=== PATIENT | male | born 2000 | race Caucasian/White ===

== ENCOUNTER 2023-05-16 07:18 | Emergency (ER) | payer OTHER | END 2023-05-16 15:07 | disposition home or self-care (01) | LOC: EDBD → CSHERS 07:18 | DX: F33.9 Major depressive disorder, recurrent, unspecified (principal) | CPT/HCPCS: 99284 ==

== ENCOUNTER 2024-01-04 15:13 | Emergency (ER) | payer OTHER ==
[2024-01-04 15:41] LABS: #Basophils 0.1 10x3/uL (0.0-0.2); #Eosinphils 0.2 10x3/uL (0.0-0.5); #Monocytes 0.4 10x3/uL (0.0-1.1); #Neutrophils 5.2 10x3/uL (1.5-8.4); %Basophils 0.7 % (0.0-2.0); %Eosinophils 2.1 % (0.0-6.0); %Lymphocytes 23.4 % (18.0-47.0); %Monocytes 5.5 % (0.0-10.0); Hemoglobin 15.4 g/dL (13.5-17.5); Mean Corpuscular Hemoglobin 28.5 pg (27.0-33.0); Mean Corpuscular Volume 81.5 fl (81.2-95.1); Mean Platelet Volume 10.2 fl (7.4-10.4); Platelet Count 256 10x3/uL (150-450); RBC Distribution Width 12.6 % (11.5-14.5); White Blood Cell (WBC) Count 7.6 10x3/uL (3.5-10.5)
[2024-01-04 15:56] LABS: Acetaminophen Less than 10 mcg/mL (10.0-30.0); Alcohol Less than 10.0 mg/dL (Less than 10); Salicylate Less than 8.0 mg/dL (15.0-30.0)
[2024-01-04 15:57] LABS: ALT (SGPT) 32 U/L (8-55); AST (SGOT) 28 U/L (5-34); Albumin 4.4 g/dL (3.5-5.0); Alkaline Phosphatase 58 U/L (40-110); Anion Gap 11 mmol/L (10-20); BUN (Urea Nitrogen) 12 mg/dL (8.9-20.6); Bilirubin, Total 0.5 mg/dL (0.2-1.2); Calc. Creatinine Clearance 0 mL/min (70-130); Calcium 9.2 mg/dL (7.8-10.44); Carbon Dioxide 29 mmol/L (22-29); Chloride 102 mmol/L (98-107); Estimated GFR 111; Globulin 2.7 g/dL (2.4-3.5); Potassium 4.5 mmol/L (3.5-5.1); Protein, Total 7.1 g/dL (6.0-8.3); Sodium 137 mmol/L (136-145)
[2024-01-04 16:16] LABS: Glucose 52 mg/dL (70-105)
[2024-01-04 18:45] LABS: Bilirubin Neg (Negative); Blood, Urine Negative (Negative); Clarity Clear (Clear); Glucose, Urine (Dipstick) Normal (Negative); Ketone, Urine Negative (Negative); Leukocyte Negative (Negative); Nitrite Negative (Negative); Protein, Urine (Dipstick) Negative (Neg-Trace); Specific Gravity, Urine 1.015 (1.005-1.030); Urobilinogen Normal mg/dL (Less than 2)
[2024-01-04] MEDS ORDERED: risperiDONE 0.5 MG TAB ONE (18:48)
[2024-01-04] MEDS ORDERED: OLANZapine 2.5 MG TAB ONE (18:50)
[2024-01-04] MEDS ORDERED: OXcarbazepine 300 MG TAB PO SCH (19:00)
[2024-01-04 19:04] LABS: Amphetamine Not Detected (NotDetected); Barbiturates Screen Not Detected (NotDetected); Benzodiazepine Screen Not Detected (NotDetected); Cocaine Metabolite Screen Not Detected (NotDetected); Methadone Not Detected (NotDetected); Methamphetamine Not Detected (NotDetected); Opiate Screen Not Detected (NotDetected); Oxycodone Screen Not Detected (NotDetected); Phencyclidine (PCP) Not Detected (NotDetected); THC/Cannabinoid Screen Not Detected (NotDetected); Tricyclic Screen Not Detected (NotDetected)
[2024-01-04 19:07] LABS: RBC/HPF None Seen HPF (0-3)
[2024-01-04 19:08] LABS: Bacteria/HPF None Seen HPF (None Seen); CAUTI Indications for Culture Pelvic or flank pain; Squamous Epithelial 0-3 HPF (0-3); WBC/HPF None Seen HPF (0-3)
[2024-01-04 19:09] LABS: Urine Culture Reflex No No
[2024-01-04] MEDS ORDERED: Ibuprofen 600 MG TAB PO SCH (19:30)
[2024-01-04] MEDS ORDERED: Nicotine 14 MG PATCH TOP SCH (19:30)
== END 2024-01-05 13:59 ==
LOC: CSHERS 15:13
DX: F31.9 Bipolar disorder, unspecified (principal); R44.1 Visual hallucinations; R44.0 Auditory hallucinations; I10 Essential (primary) hypertension; F17.210 Nicotine dependence, cigarettes, uncomplicated
CPT/HCPCS: 36415; 80053; 80306; 80307; 81001; 85025; 99285